=== PATIENT | male | born 2000 | race Caucasian/White ===

== ENCOUNTER 2019-12-06 16:30 | Emergency (ER) | payer BC, MEDICAID ==
[~2019-12-06] VITALS: Ht 175.3 cm; Wt 57.6 kg
[2019-12-06 16:39] VITALS: BP 123/63
[2019-12-06] MEDS ORDERED: ketorolac trometh inj. 60 MG/2 ML VIAL IM ONE (16:55)
[2019-12-06] MEDS ORDERED: orphenadrine citrate 60mg/2ml inj. IM ONE (16:55)
[2019-12-06] MEDS ORDERED: HYDROcodone/acetaminophen 5mg/325mg tablet PO ONE (16:55)
[2019-12-06] MEDS ORDERED: ORPH100T2 PO (16:56)
== END 2019-12-06 17:45 | disposition home or self-care (01) ==
LOC: ER 16:32
DX: M54.5 Low back pain (principal); R53.1 Weakness; R32 Unspecified urinary incontinence; Z79.899 Other long term (current) drug therapy
CPT/HCPCS: 96372; 99284; J1885; J2360

== ENCOUNTER 2020-04-10 21:28 | Emergency (ER) | payer SELFPAY ==
[~2020-04-10] VITALS: Ht 172.7 cm; Wt 61.4 kg
[~2020-04-10 21:28] MED LIST: ORPH100T2 PO
[2020-04-10 22:42] VITALS: BP 125/105
[2020-04-10] MEDS ORDERED: HYDROcodone/acetaminophen 5mg/325mg tablet PO ONE (22:50)
[2020-04-10] MEDS ORDERED: HYDR-4383 PO (23:17)
[2020-04-10] MEDS ORDERED: ONDA4TAB6 PO (23:17)
== END 2020-04-10 23:52 | disposition home or self-care (01) ==
LOC: ER 21:28
DX: S92.352A Displaced fracture of fifth metatarsal bone, left foot, initial encounter for closed fracture (principal); M25.572 Pain in left ankle and joints of left foot; M25.472 Effusion, left ankle; Z79.899 Other long term (current) drug therapy; W50.2XXA Accidental twist by another person, initial encounter; Y93.89 Activity, other specified; Y92.89 Other specified places as the place of occurrence of the external cause; Y99.8 Other external cause status
CPT/HCPCS: 73610; 73630; 99284

== ENCOUNTER 2020-06-27 19:27 | Emergency (ER) | payer MEDICAID ==
[~2020-06-27] VITALS: Ht 172.7 cm; Wt 61.4 kg
[~2020-06-27 19:27] MED LIST changes: +HYDR-4383 PO; +ONDA4TAB6 PO
[2020-06-27] MEDS ORDERED: ketorolac trometh inj. 60 MG/2 ML VIAL IM ONE (19:50)
[2020-06-27] MEDS ORDERED: acetaminophen 325mg tablet PO ONE (19:50)
[2020-06-27 21:03] VITALS: BP 114/62
== END 2020-06-27 20:58 | disposition home or self-care (01) ==
LOC: ER 19:27
DX: M79.671 Pain in right foot (principal); Z79.899 Other long term (current) drug therapy
CPT/HCPCS: 73610; 73630; 96372; 99284; J1885

== ENCOUNTER 2023-04-01 15:36 | Emergency (ER) | payer MEDICAID, OTHER ==
[~2023-04-01] VITALS: Ht 172.7 cm; Wt 61.1 kg
[~2023-04-01 15:36] MED LIST changes: -ORPH100T2 PO; +ORPH100T4 PO
[2023-04-01 15:38] VITALS: TEMP 97.7
[2023-04-01] MEDS ORDERED: morphine 4 MG/ML inj SYRINge IV ONE ×2 (15:40→16:50)
[2023-04-01] MEDS ORDERED: ondansetron/PF 4mg/2ml inj IM ONE (15:40)
--- NOTE | 2023-04-01 16:26 | NUR ---
Last time patient ate or drank anything was at 1400 today. Pt informed to stay NPO until ortho surgeon sees patient. IV established, pain meds given per md order. L shoulder sling in place. On BSM. NAD noted. Will continue to monitor.
[2023-04-01] MEDS ORDERED: HYDR-3965 PO ×3 (17:10→18:39)
[2023-04-01] MEDS ORDERED: morphine 2 MG/ML inj. syringe IV ONE (17:45)
[2023-04-01 17:51] VITALS: BP 124/77; PULSE 87; RESP 17; O2SAT 98
== END 2023-04-01 18:06 | disposition home or self-care (01) ==
LOC: ER 15:36
DX: S49.92XA Unspecified injury of left shoulder and upper arm, initial encounter (principal); V98.8XXA Other specified transport accidents, initial encounter; Y93.89 Activity, other specified; Y92.89 Other specified places as the place of occurrence of the external cause; Y99.8 Other external cause status
CPT/HCPCS: 71045; 73030; 96372; 96374; 96376; 99284; J2270; J2405; 96375; A4565

== ENCOUNTER 2023-04-04 14:53 | Emergency (ER) | payer SELFPAY ==
[~2023-04-04] VITALS: Ht 177.8 cm; Wt 60.9 kg
[~2023-04-04 14:53] MED LIST changes: +HYDR-3965 PO
[2023-04-04 15:06] VITALS: BP 132/81; PULSE 82; RESP 16; TEMP 99; O2SAT 97
[2023-04-04] MEDS ORDERED: ketorolac trometh inj. 60 MG/2 ML VIAL IM ONE (15:15)
[2023-04-04] MEDS ORDERED: NAPR-56 PO (15:15)
== END 2023-04-04 15:49 | disposition home or self-care (01) ==
LOC: ER 14:54
DX: M54.12 Radiculopathy, cervical region (principal); M79.602 Pain in left arm; Z79.899 Other long term (current) drug therapy; Z87.891 Personal history of nicotine dependence
CPT/HCPCS: 99282